=== PATIENT | female | born 1990 | race African-American/Black ===

== ENCOUNTER 2022-07-04 08:15 | Outpatient (CLI) | payer BC | END 2022-07-04 08:16 | disposition home or self-care (01) | LOC: CSHULT 08:15 | PROVIDERS: ATTEND Advanced Practice Midwife | DX: N63.0 Unspecified lump in unspecified breast (principal) ==

== ENCOUNTER 2022-11-03 09:16 | Day surgery (SDC) | payer BC ==
[2022-11-03] MEDS ORDERED: Acetaminophen 500 MG TAB ONE (09:34)
[2022-11-03] MEDS ORDERED: Acetaminophen 500 MG TAB PO SCH (09:45)
[2022-11-03] MEDS ORDERED: Iron Sucrose Complex 500 MG in Sodium Chloride 0.9% 250 ML 250 ML IVPB SCH (09:45)
== END 2022-11-03 15:00 | disposition home or self-care (01) ==
LOC: CSHSDC/OP 09:16
PROVIDERS: ATTEND Advanced Practice Midwife
DX: O99.019 Anemia complicating pregnancy, unspecified trimester (principal); D64.9 Anemia, unspecified; Z3A.00 Weeks of gestation of pregnancy not specified
CPT/HCPCS: J1756; J7050

== ENCOUNTER 2022-12-31 19:10 | Inpatient (IN) | payer BC ==
[2022-12-31] MEDS ORDERED: Oxytocin 30 units/NS 500 ML 500 ML ONE (19:39)
[2022-12-31] MEDS ORDERED: Lidocaine 1% (PF) 30 ML VIAL SC PRN (19:39)
[2022-12-31] MEDS ORDERED: Ondansetron PF 4 MG/2 ML Vial IVP PRN (19:39)
[2022-12-31] MEDS ORDERED: hydrALAZINE 20 MG/ML VIAL SLOW IVP PRN ×2 (19:39→22:29)
[2022-12-31] MEDS ORDERED: Promethazine HCl 25 MG/ML VIAL IM PRN (19:39)
[2022-12-31] MEDS ORDERED: Lidocaine 1% (PF) 30 ML VIAL ONE (19:40)
[2022-12-31] MEDS ORDERED: Misoprostol 200 MCG TAB PR PRN (19:41)
[2022-12-31] MEDS ORDERED: Diphenoxylate HCl/Atropine Tablet PO PRN (19:41)
[2022-12-31] MEDS ORDERED: fentaNYL 50 mcg/mL 1 mL Vial SLOW IVP PRN (19:41)
[2022-12-31] MEDS ORDERED: Tranexamic Acid 1,000 MG/10 ML VIAL IVP PRN (19:41)
[2022-12-31] MEDS ORDERED: Methylergonovine 0.2 MG/ML VIAL IM PRN (19:41)
[2022-12-31] MEDS ORDERED: Carboprost 250 MCG/ML AMP IM PRN (19:41)
[2022-12-31] MEDS ORDERED: Acetaminophen 500 MG TAB PO PRN (19:41)
[2022-12-31] MEDS ORDERED: Oxytocin 30 units/NS 500 ML 500 ML IV SCH ×2 (19:45→22:29)
[2022-12-31 20:07] LABS: Mean Corpuscular HGB CONC 31.6 g/dL (32.0-36.0); Mean Corpuscular Hemoglobin 25.4 pg (27.0-33.0); Mean Corpuscular Volume 80.3 fl (81.6-98.3); Platelet Count 153 10x3/uL (150-450); Red Blood Cell (RBC) Count 4.73 10x6/uL (3.90-5.03)
[2022-12-31 20:28] LABS: Syphilis Antibody Nonreactive (Nonreactive); Syphilis Antibody Index 0.04 S/CO (<1.00 Non-Reactive)
[2022-12-31 20:29] LABS: HBSAg Index 0.12 S/CO (0-0.99); Hep B Surf Ag - L&D Non-Reactive S/CO (NonReactive)
[2022-12-31] MEDS ORDERED: Ibuprofen 800 MG TAB PO SCH (21:30)
[2022-12-31] MEDS ORDERED: Milk Of Magnesia 30 ML UDCUP PO PRN (22:29)
[2022-12-31] MEDS ORDERED: HYDROcodone/Acetaminophen 5/325 mg Tablet PO PRN ×2 (22:29)
[2022-12-31] MEDS ORDERED: Boostrix 0.5 ML (Tdap) VIAL (>/=7 yrs of age) IM ONE (22:29)
[2022-12-31] MEDS ORDERED: Bisacodyl 10 MG SUPP PR PRN (22:29)
[2022-12-31] MEDS ORDERED: Benzocaine-Menthol 82.5 ML CAN TOP PRN (22:29)
[2022-12-31] MEDS ORDERED: Misoprostol 200 MCG TAB VAG PRN (22:29)
[2022-12-31] MEDS ORDERED: Lanolin Ointment 7 GM TUBE TOP PRN (22:29)
[2022-12-31 22:44] VITALS: BMI 33.3
[2023-01-01] MEDS: Ibuprofen 800 MG TAB PO SCH ×3 (05:34→22:23)
[2023-01-01] MEDS: Ferrous Sulfate 325 MG TAB PO SCH ×2 (09:02→15:22)
[2023-01-01] MEDS: Prenatal Vitamin 1 TAB PO SCH (09:07)
[2023-01-01] MEDS: Docusate 100 MG CAP PO SCH ×2 (09:07→22:23)
[2023-01-02] MEDS: Ibuprofen 800 MG TAB PO SCH ×2 (05:33→13:51)
[2023-01-02] MEDS: Ferrous Sulfate 325 MG TAB PO SCH (07:13)
[2023-01-02 08:22] VITALS: BP 110/71; TEMP 98.1
[2023-01-02] MEDS: Prenatal Vitamin 1 TAB PO SCH (08:45)
[2023-01-02] MEDS: Docusate 100 MG CAP PO SCH (08:45)
== END 2023-01-02 13:55 | disposition home or self-care (01) | DRG 807 ==
LOC: CSHLD/OP 19:10 → CSHLD 19:49 → CSHPP 01-01 00:30
PROVIDERS: ADMIT Obstetrics & Gynecology; ATTEND Obstetrics & Gynecology
PROC: 10E0XZZ Delivery of Products of Conception, External Approach (ICD-10-PCS; principal; 2023-01-01)
PROC: 0KQM0ZZ Repair Perineum Muscle, Open Approach (ICD-10-PCS; 2023-01-01)
DX: O99.02 Anemia complicating childbirth (principal); Z37.0 Single live birth; D64.9 Anemia, unspecified; Z3A.39 39 weeks gestation of pregnancy; O70.1 Second degree perineal laceration during delivery
CPT/HCPCS: 36415; 85027; 86780; 86850; 86900; 86901; 87340; 90715; 99285; J2001; J2590

== ENCOUNTER 2024-12-18 12:24 | Day surgery (SDC) | payer BC ==
[2024-12-18 14:12] LABS: #Basophils 0.04 10x3/uL (0.0-0.2); #Eosinophils 0.06 10x3/uL (0.0-0.5); #Monocytes 0.87 10x3/uL (0.0-1.1); #Neutrophils 6.65 10x3/uL (1.5-8.4); %Basophils 0.4 % (0.0-2.0); %Eosinophils 0.6 % (0.0-6.0); %Lymphocytes 20.6 % (18.0-47.0); %Monocytes 9.0 % (0.0-10.0); %Neutrophils 68.9 % (40.0-75.0); Hematocrit 34.5 % (34.9-44.5); Hemoglobin 10.9 g/dL (12.0-15.5); Mean Corpuscular Hemoglobin 26.9 pg (27.0-33.0); Mean Corpuscular Volume 85.2 fL (81.6-98.3); Platelet Count 172 10x3/uL (150-450); Red Blood Cell (RBC) Count 4.05 10x6/uL (3.90-5.03); White Blood Cell (WBC) Count 9.66 10x3/uL (3.5-10.5)
[2024-12-18 14:25] LABS: ALT (SGPT) 8 U/L (Less than 34); AST (SGOT) 13 U/L (11-34); Albumin 3.0 g/dL (3.1-4.5); Alkaline Phosphatase 53 U/L (40-110); Anion Gap 13 mmol/L (10-20); BUN (Urea Nitrogen) 4 mg/dL (7.0-18.7); Bilirubin, Total 0.2 mg/dL (0.3-1.2); Calc. Creatinine Clearance 0 mL/min (70-130); Calcium 8.6 mg/dL (7.8-10.44); Carbon Dioxide 20 mmol/L (22-29); Chloride 108 mmol/L (98-107); Globulin 3.2 g/dL (2.4-3.5); Glucose 77 mg/dL (70-105); Lipase 8 U/L (8-78); Magnesium 1.9 mg/dL (1.6-2.6); Potassium 4.0 mmol/L (3.5-5.1); Sodium 137 mmol/L (136-145)
[2024-12-18 15:12] LABS: Glucose, Urine (Dipstick) Normal (Negative); Leukocyte Negative (Negative); Protein, Urine (Dipstick) Negative (Neg-Trace); Specific Gravity, Urine 1.015 (1.005-1.030)
[2024-12-18] MEDS ORDERED: Ondansetron PF 4 MG/2 ML Vial ONE (15:18)
[2024-12-18 15:29] LABS: Bacteria/HPF None Seen HPF (None Seen); CAUTI Indications for Culture Pregnancy; RBC/HPF None Seen HPF (0-3); WBC/HPF None Seen HPF (0-3)
[2024-12-18 15:30] LABS: Urine Culture Reflex Yes Yes
[2024-12-18 20:02] VITALS: BMI 27.6
== END 2024-12-18 21:12 | disposition home or self-care (01) ==
LOC: CSHERS 12:24 → EDSTATUS 12:25 → CSHLD/OP 19:35 → CSHLD 19:49 → UNDOADMIN 19:49 → CSHLD/OP 21:12 → UNDODISIN 21:12
PROVIDERS: ATTEND Obstetrics & Gynecology
DX: O99.891 Other specified diseases and conditions complicating pregnancy (principal); R10.31 Right lower quadrant pain; Z3A.23 23 weeks gestation of pregnancy; O99.012 Anemia complicating pregnancy, second trimester
CPT/HCPCS: 36415; 72195; 74181; 76705; 80053; 81001; 83690; 83735; 85025; 86140; 87086; 96374; 96375; 99283; J2270